=== PATIENT | female | born 1980 | race Caucasian/White ===

== ENCOUNTER 2016-08-01 22:44 | Emergency (ER) | payer OTHER ==
[~2016-08-01] VITALS: Ht 162.6 cm; Wt 54.0 kg
[~2016-08-01 22:44] MED LIST: PRENAT PO
[2016-08-01 22:49] VITALS: Ht 162.6 cm; Wt 54.0 kg
[2016-08-01] MEDS ORDERED: morphine 4 MG/ML VIAL IV STA (23:04)
[2016-08-01] MEDS ORDERED: SOD CHLORIDE 0.9% 1,000 ML IV STA (23:04)
[2016-08-01] MEDS ORDERED: ONDANSETRON 4 MG INJ IV STA (23:04)
[2016-08-01] MEDS ORDERED: ACETAMINOPHEN 500 MG TAB PO STA (23:04)
[2016-08-01 23:32] LABS: ADD SCAN DIFF NO
[2016-08-01 23:34] LABS: ABNORMAL IP MESSAGE 1; ADD UMIC YES; HEMATOCRIT 46.3 % (37.0-47.0); HEMOGLOBIN 15.8 g/dl (12.0-16.0); MEAN CORPUSCULAR HEMOGLOBIN 31.7 pg (29.0-33.0); MEAN CORPUSCULAR HGB CONC 34.1 g/dl (32.0-37.0); MEAN CORPUSCULAR VOLUME 92.8 fl (82.0-101.0); MEAN PLATELET VOLUME 10.2 fl (7.4-10.4); PLATELET COUNT 118 10^3/UL (140-415); RED BLOOD COUNT 4.99 10^6/ul (4.20-5.40); RED CELL DISTRIBUTION WIDTH 12.4 % (11.5-14.5); URINE BILIRUBIN (Dip) NEGATIVE (NEGATIVE); URINE BLOOD (Dip) TRACE (NEGATIVE); URINE COLOR LT. YELLOW (YELLOW); URINE GLUCOSE (Dip) NEGATIVE (NEGATIVE); URINE KETONES (Dip) 40 (NEGATIVE); URINE LEUKOCYTE ESTERASE (Dip) NEGATIVE (NEGATIVE); URINE NITRITE (Dip) NEGATIVE (NEGATIVE); URINE TOTAL PROTEIN (Dip) TRACE (NEGATIVE); URINE UROBILINOGEN (Dip) 0.2 E.U./dL (0.1-1.0); WHITE BLOOD COUNT 8.1 10^3/ul (4.8-10.8)
[2016-08-01 23:43] LABS: ALBUMIN 4.6 g/dl (3.3-4.9)
[2016-08-01 23:44] LABS: INR 1.03; POTASSIUM 4.6 mmol/L (3.5-5.1); PROTIME 13.5 Sec (12.2-14.2); PT RATIO 1.1
[2016-08-01 23:45] LABS: PARTIAL THROMBOPLASTIN TIME 26.9 Sec (25.0-35.0)
[2016-08-01 23:46] LABS: ALBUMIN/GLOBULIN RATIO 1.53; BILIRUBIN,INDIRECT 0.7 mg/dl (0-1.1); BILIRUBIN,TOTAL 0.7 mg/dl (0.2-1.3); CREATININE 0.86 mg/dl (0.44-1.00); TOTAL PROTEIN 7.6 g/dl (6.1-8.1)
[2016-08-01 23:48] LABS: BACTERIA,URINE MODERATE; MUCUS,URINE FEW; SQUAMOUS EPITHELIAL CELL,UR FEW
--- NOTE | 2016-08-02 00:35 | RADRPT ---
PROCEDURE: CT abdomen and pelvis without intravenous contrast. CLINICAL INDICATION: Right lower quadrant pain. TECHNIQUE: CT of the abdomen/pelvis was performed utilizing axial images with reconstructions in s agittal and coronal planes. The administered radiation dose is CTDI 5.9 mGy, DLP 297 mGy-cm. COMPARISON: No pertinent prior examinations were submitted for comparison. FINDINGS: Visualized Chest: The visualized lung bases are clear. Abdomen: The spleen, pancreas, gallbladder,and adrenal glands are unremarkable. The liver is diffusely dec reased in attenuation, compatible with hepatic steatosis. The kidneys are without hydronephrosis. No definite urinary calculi are seen. There is no evidence of bowel obstruction. The appendix is normal. No intra-abdominal free air is seen. There is no evidence of intra-abdominal adenopathy or free fluid. Pelvis: There is no evidence of pelvic adenopathy. The uterus and ovaries are without enlargement. The uri nary bladder is unremarkable. There is no pelvic free fluid. Osseous structures: Unremarkable. IMPRESSION: No acute findings. Normal appendix. RPTAT: HIKT .Doyle Stacy MD, MD Date Time Electronically viewed and signed by .Doyle Stacy MD, on 08/02/2016 00:35 .T/
--- NOTE | 2016-08-02 00:42 | ERD ---
ER Documentation Chief Complaint Date/Time DATE: 08/01/16 Chief Complaint Abdominal pain, fevers, vomiting HPI The patient is a 36-year-old female who presents to the Emergency Department with complaint of abdominal pain, fevers, nausea and vomiting. The patient reports that her symptoms initially began at 10:00 am this morning, with onset of body aches, fevers, chills, nausea, vomiting and abdominal pain. Her abdominal pain is localized to the periumbilical region of the abdomen, and intermittently radiates to the lower quadrants. The pain has been constant since onset and is aching in nature. She rates her current pain as 9/10. She reports associated nausea and several episodes of nonbilious, nonbloody emesis. She denies any dysuria, hematuria or flank pain. Denies diarrhea. Denies black or bloody stools. Despite having fevers, she has not yet taken any medication for fever relief. The patient does note that 2 days ago her was experiencing similar symptoms, though in addition to diarrhea, and was diagnosed with the stomach flu. ROS All systems reviewed and are negative except as per history of present illness. Medications Home Meds Active Scripts Ibuprofen* (Motrin*) 600 Mg Tab, 600 MG PO Q6, #20 TAB Prov:BRUNO SPEARS PA-C 08/02/16 Ondansetron (Ondansetron Odt) 4 Mg Tab.rapdis, 4 MG PO Q6H Y for NAUSEA AND/OR VOMITING, #8 TAB Prov:BRUNO SPEARS PA-C 08/02/16 Multivit/Min/Fol Ac/Iron/Pren* ( S*) 1 Tab Tab, 1 TAB PO DAILY, #100 TAB Prov:KANIKA CLEMENTS MD 03/10/15 Allergies Allergies: Coded Allergies: latex (Verified Allergy, Intermediate, 07/04/15) Anaphylactic reaction, skin swell and turns red PMhx/Soc Medical and Surgical Hx: pt denies Medical Hx, pt denies Surgical Hx History of Surgery: No Anesthesia Reaction: No Hx Neurological Disorder: No Hx Respiratory Disorders: No Hx Cardiac Disorders: No Hx Psychiatric Problems: No Hx Miscellaneous Medical Probl: No Hx Alcohol Use: No Hx Substance Use: No Hx Tobacco Use: No Smoking Status: Never smoker Physical Exam Vitals Vital Signs Date Time Temp Pulse Resp B/P Pulse Ox O2 Delivery O2 Flow Rate FiO2 08/02/16 01:01 99.5 92 17 107/68 98 Room Air 08/01/16 22:49 101.4 127 20 128/70 100 Physical Exam GENERAL: Well-developed, well-nourished, female, in no acute distress. HEENT: Head is normocephalic, atraumatic. No scleral pallor or icterus. Conjunctiva pink. Mildly dry mucous membranes. Clear oropharynx. NECK: Supple. Full range of motion. RESPIRATORY: Lungs are clear to auscultation bilaterally. No rales, rhonchi or wheezing. Equal breath sounds. Normal expiratory effort. CARDIOVASCULAR: Tachycardic. Regular rhythm. Distal pulses are palpable, 2+ bilaterally. Capillary refill is less than 2 seconds. GASTROINTESTINAL: Abdomen is soft and non-distended. Tenderness to palpation over the periumbilical region and right lower quadrant. Minimal tenderness over the left lower quadrant of the abdomen. No guarding, no rebound tenderness. Positive bowel sounds. No masses. Negative Mayes's sign. FLANK: No CVA tenderness. BACK: No midline tenderness. EXTREMITIES: No clubbing, cyanosis, or edema. Normal skin perfusion. Moving all extremities. Muscle tone is normal. No focal swelling or erythema. NEUROLOGIC: The patient is alert, awake, and oriented. Speech is normal. INTEGUMENT: Skin is intact. Warm and dry. PSYCHIATRIC: Cooperative. Result Diagram: 08/01/16232208/01/163 Results 24 hrs Laboratory Tests Test 08/01/16 23:23 White Blood Count 8.110^3/ul Red Blood Count 4.9910^6/ul Hemoglobin 15.8g/dl Hematocrit 46.3% Mean Corpuscular Volume 92.8fl Mean Corpuscular Hemoglobin 31.7pg Mean Corpuscular Hemoglobin Concent 34.1g/dl Red Cell Distribution Width 12.4% Platelet Count 57147^3/UL Mean Platelet Volume 10.2fl Neutrophils % 94.0% Lymphocytes % 3.0% Monocytes % 3.0% Neutrophils # 7.610^3/ul Lymphocytes # 0.210^3/ul Monocytes # 0.210^3/ul Platelet Estimate PLT APPEAR ADEQUATE Prothrombin Time 13.5Sec Prothrombin Time Ratio 1.1 INR International Normalized Ratio 1.03 Activated Partial Thromboplast Time 26.9Sec Urine Color LT. YELLOW Urine Clarity SLIGHTLY CLOUDY Urine pH 5.5 Urine Specific [place] >=1.030 Urine Ketones 40 Urine Nitrite NEGATIVE Urine Bilirubin NEGATIVE Urine Urobilinogen 0.2 E.U./dL Urine Leukocyte Esterase NEGATIVE Urine Microscopic RBC 2-5/HPF Urine Microscopic WBC 0-2/HPF Urine Squamous Epithelial Cells FEW Urine Bacteria MODERATE Urine Mucus FEW Urine Hemoglobin TRACE Urine Glucose NEGATIVE% Urine Total Protein TRACE Sodium Level 141mmol/L Potassium Level 4.6mmol/L Chloride Level 101mmol/L Carbon Dioxide Level 25mmol/L Anion Gap 20 Blood Urea Nitrogen 15mg/dl Creatinine 0.86mg/dl Glucose Level 110mg/dl Calcium Level 9.0mg/dl Total Bilirubin 0.7mg/dl Direct Bilirubin 0.00mg/dl Indirect Bilirubin 0.7mg/dl Aspartate Amino Transf (AST/SGOT) 28IU/L Alanine Aminotransferase (ALT/SGPT) 35IU/L Alkaline Phosphatase 70IU/L Total Protein 7.6g/dl Albumin 4.6g/dl Globulin 3.00g/dl Albumin/Globulin Ratio 1.53 Lipase 41U/L Current Medications Medications (Trade) Dose Ordered Sig/Yordy Route PRN Reason Start Time Stop Time Status Last Admin Dose Admin Sodium Chloride (NS) 1,000 ml @ 1,000 mls/hr Q1H STAT IV 08/01/16 23:04 08/02/16 00:03 DC 08/01/16 23:17 Morphine Sulfate (morphine) 4 mg ONCE STAT IV 08/01/16 23:04 08/01/16 23:05 DC 08/01/16 23:17 Ondansetron HCl (Zofran Inj) 4 mg ONCE STAT IV 08/01/16 23:04 08/01/16 23:05 DC 08/01/16 23:17 Acetaminophen (Tylenol Tab) 1,000 mg ONCE STAT PO 08/01/16 23:04 08/01/16 23:05 DC 08/01/16 23:17 Procedures/MDM DIAGNOSTIC TESTS AND INTERPRETATION: PROCEDURE: CT abdomen and pelvis without intravenous contrast. CLINICAL INDICATION: Right lower quadrant pain. TECHNIQUE: CT of the abdomen/pelvis was performed utilizing axial images with reconstructions in sagittal and coronal planes. The administered radiation dose is CTDI 5.9 mGy, DLP 297 mGy-cm. COMPARISON: No pertinent prior examinations were submitted for comparison. FINDINGS: Visualized Chest: The visualized lung bases are clear. Abdomen: The spleen, pancreas, gallbladder,and adrenal glands are unremarkable. The liver is diffusely decreased in attenuation, compatible with hepatic steatosis. The kidneys are without hydronephrosis. No definite urinary calculi are seen. There is no evidence of bowel obstruction. The appendix is normal. No intra- abdominal free air is seen. There is no evidence of intra-abdominal adenopathy or free fluid. Pelvis: There is no evidence of pelvic adenopathy. The uterus and ovaries are without enlargement. The urinary bladder is unremarkable. There is no pelvic free fluid. Osseous structures: Unremarkable. IMPRESSION:No acute findings. Normal appendix. .Doyle Stacy MD, MD Date Time Electronically viewed and signed by .Doyle Stacy MD, on 08/02/2016 00:35 EMERGENCY DEPARTMENT COURSE: The patient was stable throughout the ED course. IV access established by nursing staff. Fluids, morphine, and Zofran administered to the patient. Laboratory work and diagnostic imaging performed. On reevaluation, the patient reports no new complaints, and resolved pain. She reports feeling significantly better. She had no episodes of emesis while in the Emergency Department. The patient's case was reviewed and discussed with Dr. Velez who agrees with the plan of care including labs, treatment and advanced imaging as appropriate. MEDICAL DECISION MAKING: This is a 36-year-old female presenting to the Emergency Department with complaint of abdominal pain, fevers, and vomiting. On physical examination, she had tenderness to palpation over the right lower quadrant, periumbilical region and minimally over the left lower quadrant of the abdomen. Otherwise, no guarding, no rebound tenderness. Vital signs were stable. The differential diagnosis includes, but is not limited to, appendicitis , cholecystitis, abdominal aortic aneurysm, Crohn's disease, diverticulitis, ectopic , endometriosis, herpes zoster, nephrolithiasis, intra- abdominal abscess, PID, ovarian torsion, ovarian cyst, mesenteric lymphadenitis , Meckel's diverticulum, ischemic colitis, mesenteric ischemia, inguinal hernia , tubo-ovarian abscess, abdominal aortic aneurysm, gastroenteritis, cervicitis, cystitis. Laboratory analysis with no leukocytosis, no severe anemia, no significant electrolyte abnormalities. BUN and creatinine within appropriate reference range, with no prerenal azotemia or acute kidney injury. No transaminitis, lipase is normal. Urinalysis with no nitrites, no urine leukocyte esterase, doubt urinary tract infection. CT abdomen and pelvis performed, which revealed a normal appendix and no acute findings. Urine negative. After rest and administration of fluids and medications, the patient reports no new complaints. Upon my review and interpretation of the patient's presentation, clinical data, and overall ER course, I believe the patient's symptoms are most consistent with acute febrile illness, abdominal pain and vomiting, uncertain etiology, but possibly viral.The patient's recently began to experience similar symptoms, making this diagnosis more likely. I doubt cholecystitis, no right upper quadrant tenderness, negative Mayes's sign. Doubt pancreatitis - clinical presentation inconsistent. Doubt perforated ulcer, patient has a non- surgical abdomen. Doubt small bowel obstruction, patient is passing flatus, abdomen is non-distended. Doubt appendicitis, no evidence on CT, no leukocytosis. Doubt diverticulitis, exam inconsistent. Doubt ischemic bowel, no pain out of proportion to examination. Doubt torsion, symptoms and examination inconsistent. At this time the patient is in stable condition and therefore can be discharged home with prescriptions for ibuprofen and Zofran and given strict return precautions for signs of deteriorating or worsening condition. The patient is advised to follow up with her primary care provider within 1-2 days for reevaluation and further management, or return to the ER sooner for any new or worsening symptoms. I shared my medical decision making, plan and results with the patient and she verbally understands and agrees with the plan for further observation and care as an outpatient. At the time of discharge, all questions were answered. Departure Diagnosis: Primary Impression: Abdominal pain Abdominal location: unspecified location Qualified Code: R10.9 - Abdominal pain, unspecified location Additional Impressions: Vomiting Vomiting type: unspecified Vomiting Intractability: non-intractable Nausea presence: with nausea Qualified Code: R11.2 - Non-intractable vomiting with nausea, unspecified vomiting type Acute febrile illness Condition: Stable Patient Instructions: Abdominal Pain, Gastroenteritis, Viral (6Y-Adult), Vomiting (6Y-Adult) Additional Instructions: Call your primary care doctor TOMORROW for an appointment during the next 1-2 days.See the doctor sooner or return here if your condition worsens before your appointment time. BRUNO SPEARS PA-C Aug 02, 2016 00:42
[2016-08-02] MEDS ORDERED: IBUP-1542 PO (00:44)
[2016-08-02] MEDS ORDERED: ONDA4TAB14 PO (00:44)
[2016-08-02 00:52] LABS: LYMPHOCYTES # 0.2 10^3/ul (0.8-2.9); MONOCYTE # 0.2 10^3/ul (0.3-0.9); NEUTROPHIL # 7.6 10^3/ul (1.6-7.5)
[2016-08-02 00:54] LABS: PLATELET ESTIMATE PLT APPEAR ADEQUATE
[2016-08-02 01:01] VITALS: BP 107/68; PULSE 92; RESP 17; TEMP 99.5
== END 2016-08-02 01:05 | disposition home or self-care (01) ==
LOC: FTE 22:44
DX: R10.9 Unspecified abdominal pain (principal); R11.2 Nausea with vomiting, unspecified; R50.9 Fever, unspecified
CPT/HCPCS: 36415; 74176; 80053; 81001; 83690; 85025; 85610; 85730; 96374; 96375; J2270; J2405; J7030; Z7502; Z7610; 81003

== ENCOUNTER 2017-09-07 16:09 | Emergency (ER) | END 2017-09-07 17:53 | disposition home or self-care (01) ==

== ENCOUNTER 2017-09-08 10:30 | Emergency (ER) | END 2017-09-08 14:16 | disposition home or self-care (01) ==